=== PATIENT | female | born 1970 | race Caucasian/White ===

== ENCOUNTER 2017-01-04 12:22 | Emergency (ER) | payer OTHER ==
[~2017-01-04] VITALS: Ht 165.1 cm; Wt 73.0 kg
[2017-01-04 12:25] VITALS: BP 192/100; PULSE 95; RESP 15; TEMP 98.4; O2SAT 97
[2017-01-04] MEDS ORDERED: METO25TA6 PO (12:44)
[2017-01-04] MEDS ORDERED: LOSA100T PO (12:44)
[2017-01-04] MEDS ORDERED: ATOR10TA15 PO (12:44)
[2017-01-04] MEDS ORDERED: ONDANSETRON HCL 4 MG/2 ML VIAL IV PUSH ONE (13:00)
[2017-01-04] MEDS ORDERED: SODIUM CHLOR 0.9% 1000 ML INJ 1,000 ML IV ONE (13:00)
[2017-01-04] MEDS ORDERED: KETOROLAC TROMETHAMINE 30 MG/ML (IVP) VIAL IV PUSH ONE (13:00)
--- NOTE | 2017-01-04 13:26 | RADRPT ---
EXAM DATE/TIME: 01/04/2017 13:11 [facility] COMPARISON: No previous studies available for comparison. INDICATIONS : Left flank pain. ORAL CONTRAST: No oral contrast ingested. RADIATION DOSE: 9.46 CTDIvol (mGy) MEDICAL HISTORY : Hypertension. SURGICAL HISTORY : Tubal ligation. ENCOUNTER: Initial ACUITY: 1 week PAIN SCALE: 4/10 LOCATION: Left flank TECHNIQUE: Volumetric scanning of the abdomen and pelvis was performed. Using automated exposure control and ad justment of the mA and/or kV according to patient size, radiation dose was kept as low as reasonably achievable to obtain optimal diagnostic quality images. DICOM format image data is available electro nically for review and comparison. FINDINGS: Lung base is are clear. The liver, spleen and pancreas are unremarkable Low-density 2 cm bilateral adrenal masses, usually adenoma Right kidney: 2 mm stone lower pole right kidney Left kidney: There are no calcifications in left kidney. There are no calcifications along the left ureter Pelvic contents are unremarkable Review of bone windows reveals only mild degenerative changes. CONCLUSION: Bilateral low density adrenal masses, probably adenoma Do not see an obstructing left renal stone Nonobstructing right renal stone. Jake Robledo MD FACR on January 04, 2017 at 13:22 Board Certified Radiologist. This report was verified electronically.
--- NOTE | 2017-01-04 13:26 | PD ---
HPI Chief Complaint: Flank/Kidney Pain Time Seen by Provider: 12:49 Travel History International Travel<30 days: No Contact w/Intl Traveler<30days: No Traveled to known affect area: No History of Present Illness HPI Is a 46 year-old woman who presents to the emergency department complaining of left flank pain ongoing for the past week or so. It's been constant, worsening. So she was some dark urine. So some nausea with it as well. She also describes hyperesthesia to the skin on that side. No recent illness or injury. She otherwise has been feeling generally well and healthy. No history of kidney stones. No history of back problems. No history of shingles. History Past Medical History Narrative Medical Hypertension hyperlipidemia Menopausal: Yes : 2 Para: 2 Social History Alcohol Use: Yes (socially) Tobacco Use: Yes Allergies-Medications (Allergen,Severity, Reaction): Coded Allergies: No Known Allergies (Unverified , 01/04/17) Reported Meds & Prescriptions Reported Meds & Active Scripts Active Reported Atorvastatin (Atorvastatin Calcium) 10 Mg Tab Unknown Dose PO HS Metoprolol Succinate ER 24 HR (Metoprolol Succinate) 25 Mg Tab Unknown Dose PO DAILY Losartan (Losartan Potassium) 100 Mg Tab 100 Mg PO DAILY Review of Systems Except as stated in HPI: all other systems reviewed are Neg Physical Exam Narrative GENERAL: Well-appearing 46 year-old woman, appears uncomfortable but nontoxic. SKIN: Focused skin assessment warm/dry. No rash or evidence of zoster. HEAD: Atraumatic. Normocephalic. EYES: Pupils equal and round. No scleral icterus. No injection or drainage. ENT: No nasal bleeding or discharge. Mucous membranes pink and moist. NECK: Trachea midline. No JVD. CARDIOVASCULAR: Regular rate and rhythm. No murmur appreciated. RESPIRATORY: No accessory muscle use. Clear to auscultation. Breath sounds equal bilaterally. GASTROINTESTINAL: Abdomen soft, non-tender, nondistended. Hepatic and splenic margins not palpable. MUSCULOSKELETAL: No obvious deformities. No edema. NEUROLOGICAL: Awake and alert. No obvious cranial nerve deficits. Motor grossly within normal limits. Normal speech. PSYCHIATRIC: Appropriate mood and affect; insight and judgment normal. Data Data Last Documented VS Vital Signs Date Time Temp Pulse Resp B/P (MAP) Pulse Ox O2 Delivery O2 Flow Rate FiO2 01/04/17 16:20 98.2 65 19 160/93 (115) 97 Room Air Orders Orders Complete Blood Count With Diff (01/04/17 12:58) Basic Metabolic Panel (Bmp) (01/04/17 12:58) Iv Access Insert/Monitor (01/04/17 12:58) Ct Abd/Pel W/O Iv Contrast (01/04/17 ) Urinalysis - C+S If Indicated (01/04/17 12:58) Ketorolac Inj (Toradol Inj) (01/04/17 13:00) Ondansetron Inj (Zofran Inj) (01/04/17 13:00) Sodium Chlor 0.9% 1000 Ml Inj (Ns 1000 M (01/04/17 13:00) Urine Culture (01/04/17 13:09) Morphine Inj (Morphine Inj) (01/04/17 14:15) Ceftriaxone Inj (Rocephin Inj) (01/04/17 14:15) Cta Thor Abd Aorta W Iv C W3d (01/04/17 ) Iohexol 350 Inj (Omnipaque 350 Inj) (01/04/17 15:59) Labs Laboratory Tests Test 01/04/17 13:09 White Blood Count 10.2 TH/MM3 Red Blood Count 4.88 MIL/MM3 Hemoglobin 14.8 GM/DL Hematocrit 43.7 % Mean Corpuscular Volume 89.5 FL Mean Corpuscular Hemoglobin 30.3 PG Mean Corpuscular Hemoglobin Concent 33.9 % Red Cell Distribution Width 13.6 % Platelet Count 144 TH/MM3 Mean Platelet Volume 10.3 FL Neutrophils (%) (Auto) 67.0 % Lymphocytes (%) (Auto) 24.4 % Monocytes (%) (Auto) 5.8 % Eosinophils (%) (Auto) 2.0 % Basophils (%) (Auto) 0.8 % Neutrophils # (Auto) 6.9 TH/MM3 Lymphocytes # (Auto) 2.5 TH/MM3 Monocytes # (Auto) 0.6 TH/MM3 Eosinophils # (Auto) 0.2 TH/MM3 Basophils # (Auto) 0.1 TH/MM3 CBC Comment DIFF FINAL Differential Comment Urine Color YELLOW Urine Turbidity HAZY Urine pH 5.5 Urine Specific [place] 1.024 Urine Protein TRACE mg/dL Urine Glucose (UA) NEG mg/dL Urine Ketones NEG mg/dL Urine Occult Blood TRACE Urine Nitrite POS Urine Bilirubin NEG Urine Urobilinogen LESS THAN 2.0 MG/DL Urine Leukocyte Esterase TRACE Urine RBC LESS THAN 1 /hpf Urine WBC 6 /hpf Urine Squamous Epithelial Cells 1 /hpf Urine Bacteria MOD /hpf Urine Mucus FEW /lpf Microscopic Urinalysis Comment CULTURE INDICATED Blood Urea Nitrogen 12 MG/DL Creatinine 0.85 MG/DL Random Glucose 118 MG/DL Calcium Level 8.7 MG/DL Sodium Level 144 MEQ/L Potassium Level 3.6 MEQ/L Chloride Level 112 MEQ/L Carbon Dioxide Level 25.3 MEQ/L Anion Gap 7 MEQ/L Estimat Glomerular Filtration Rate 72 ML/MIN [facility] Medical Decision Making Medical Screen Exam Complete: Yes Emergency Medical Condition: Yes Interpretation(s) CT negative for stone, CTA negative for dissection CBC is unremarkable BMP is unremarkable UA is positive for nitrites but only 6 white blood cells. Probable UTI. Differential Diagnosis Kidney stone, zoster, back injury, dissection, other Narrative Course Medical decision making Is a 46 year-old woman presents to the emergency department left back and flank pain and dark urine suggestive of likely kidney stone. She does describe some hyperesthesias well and zoster certainly could have a similar appearance although is no rash after week making this much more likely. We'll check labs urine CT and reassess. FINAL: Patient with a little bit of pyuria and positive nitrites but I was hesitant to accept this is Sugar her severe pain especially absence of other infectious symptoms like fever or leukocytosis that was suggest severe pyelonephritis. Because of this, CTA was ordered to look for dissection which was fortunately negative. We'll treat for infection. Other possibilities could include zoster without rash although incidences of this is unknown to be very low. Diagnosis Primary Impression: Flank pain Additional Instructions: Take antibiotics as prescribed. Take Lortab sparingly as needed for severe pain. Take Naprosyn as needed for pain. Return to the emergency department for any new or worsening symptoms. Med/Other Pt SpecificInfo: Prescription(s) given Scripts Cephalexin (Keflex) 500 Mg Cap 500 MG PO Q8H for Infection, #30 CAP 0 Refills Prov: Rico Davies MD 01/04/17 Hydrocodone-Acetaminophen (Lortab) 5-325 Mg Tab 1-2 TAB PO Q6H Y for PAIN, #12 TAB 0 Refills Prov: Rico Davies MD 01/04/17 Disposition: 01 DISCHARGE HOME Condition: Stable Rico Davies MD Jan 04, 2017 13:26
[2017-01-04 13:27] LABS: AUTOMATED NEUTROPHIL # 6.9 TH/MM3 (1.8-7.7); BASOPHIL # 0.1 TH/MM3 (0-0.2); BASOPHIL % 0.8 % (0.0-2.0); EOSINOPHIL # 0.2 TH/MM3 (0-0.4); HEMATOCRIT 43.7 % (35.0-46.0); HEMO FLAGS DIFF FINAL; LYMPH % 24.4 % (9.0-44.0); LYMPHOCYTE # 2.5 TH/MM3 (1.0-4.8); MEAN CELL VOLUME 89.5 FL (80.0-100.0); MEAN CORPUSCULAR HEMOGLOBIN 30.3 PG (27.0-34.0); MEAN CORPUSCULAR HGB CONC 33.9 % (32.0-36.0); MONO % 5.8 % (0.0-8.0); PLATELET COUNT 144 TH/MM3 (150-450); RED BLOOD COUNT 4.88 MIL/MM3 (4.00-5.30); RED CELL DISTRIBUTION WIDTH 13.6 % (11.6-17.2); WHITE BLOOD COUNT 10.2 TH/MM3 (4.0-11.0)
[2017-01-04 13:36] LABS: BACTERIA, URINE MOD /hpf; BLOOD, URINE TRACE (NEG); COMMENT (UR) CULTURE INDICATED; CULTURE IF INDICATED CULTURE INDICATED; GLUCOSE,URINE NEG (NEG); KETONE, URINE NEG (NEG); MUCUS URINE FEW /lpf (OCC); NITRITE,URINE POS (NEG); PH, URINE 5.5 (5.0-8.5); SQUAMOUS EPITHELIAL CELL URINE 1 /hpf (0-5); URINE COLOR YELLOW (YELLW/STRAW)
[2017-01-04 13:44] LABS: BICARBONATE 25.3 MEQ/L (21.0-32.0); POTASSIUM 3.6 MEQ/L (3.5-5.1)
[2017-01-04] MEDS ORDERED: cefTRIAXone INJ 1,000 MG in SODIUM CHLORIDE 0.9% INJ 100 ML IV ONE (14:15)
[2017-01-04] MEDS ORDERED: MORPHINE SULFATE 4 MG/ML INJ IV PUSH ONE (14:15)
[2017-01-04] MEDS ORDERED: IOHEXOL 350 MG/ML 10 ML VIAL (for RAD DIAG) IVCONTRAST ONE (15:59)
[2017-01-04 16:20] VITALS: BP 160/93; PULSE 65; RESP 19; TEMP 98.2; O2SAT 97
--- NOTE | 2017-01-04 16:26 | RADRPT ---
EXAM DATE/TIME: 01/04/2017 16:01 [facility] COMPARISON: No previous studies available for comparison. INDICATIONS : Back pain. IV CONTRAST: 100 cc Omnipaque 350 (iohexol) IV RADIATION DOSE: 16.65 CTDIvol (mGy) MEDICAL HISTORY : Hypertension. SURGICAL HISTORY : Tubal ligation. ENCOUNTER: Initial ACUITY: 1 day PAIN SCALE: 5/10 LOCATION: back TECHNIQUE: Volumetric scanning was performed using a multi-row detector CT scanner. The data was post processed with a variety of visualization algorithms including full volume maximum intensity projection, multi -planar sliding thin slab reformation, curved planar reformation, and surface rendering techniques. Using automated exposure control and adjustment of the mA and/or kV according to patient size, radiat ion dose was kept as low as reasonably achievable to obtain optimal diagnostic quality images. DICOM format image data is available electronically for review and comparison. FINDINGS: LUNGS: There is no consolidation or pneumothorax. No concerning pulmonary nodule is visualized. No pleural fluid is present. Mild emphysematous changes are noted. MEDIASTINUM: No abnormally enlarged lymph nodes by CT criteria. No axillary or hilar abnormalities are identified. ABDOMEN: The liver and spleen are free of focal defects. The gallbladder and pancreas demonstrate no abnormali ty. The adrenal glands are normal. The kidneys demonstrate no evidence of solid renal mass or hydrone phrosis. No free fluid or abdominal masses are identified. No para-aortic adenopathy is seen. PELVIS: No evidence of free fluid or pelvic mass. No abnormally enlarged inguinal or retroperitoneal lymph no glen are present. The bladder is unremarkable. THORACIC AORTA: The thoracic aortic root is normal with normal branching of the great vessels. There is no evidence of aneurysm or dissection. ABDOMINAL AORTA: The aorta is normal in caliber without aneurysm or dissection. The renal arteries are patent bilater ally. The proximal celiac and superior mesenteric arteries are patent and normal in diameter. Mode rate distal calcification is evident. PELVIC VESSELS: Moderate desiccation is present without focal stenosis.. CONCLUSION: Negative for dissection. I do not see an etiology for back pain. Jake Robledo MD FACR on January 04, 2017 at 16:22 Board Certified Radiologist. This report was verified electronically.
[2017-01-04] MEDS ORDERED: HYDR-3533 PO (16:50)
[2017-01-04] MEDS ORDERED: CEPH-460 PO (16:50)
== END 2017-01-04 17:13 | disposition home or self-care (01) ==
LOC: NEPD 12:22
DX: R10.32 Left lower quadrant pain (principal); R10.12 Left upper quadrant pain; I10 Essential (primary) hypertension; E78.5 Hyperlipidemia, unspecified; R11.0 Nausea; R20.3 Hyperesthesia; F17.200 Nicotine dependence, unspecified, uncomplicated; Z79.899 Other long term (current) drug therapy
CPT/HCPCS: 71275; 74174; 74176; 80048; 81001; 85025; 87077; 87086; 87186; 96361; 96365; 96375; 99285; J0696; J1885; J2270; J2405; J7030; Q9967